=== PATIENT | female | born 1960 | race Asian ===

== ENCOUNTER 2022-07-21 07:45 | Emergency (ER) | payer MEDICAID ==
[~2022-07-21] VITALS: Ht 162.6 cm; Wt 69.4 kg
[2022-07-21 07:50] VITALS: BP 133/81
[2022-07-21] MEDS ORDERED: LOSA50TA66 PO (08:02)
[2022-07-21] MEDS ORDERED: BACL10TA4 PO (08:03)
[2022-07-21] MEDS ORDERED: ESOM20EC PO (08:04)
[2022-07-21] MEDS ORDERED: ATOR40TA PO (08:04)
--- NOTE | 2022-07-21 08:05 | NUR ---
no open beds at this time, pt back to [facility]
[2022-07-21 09:15] LABS: BASOPHILS # (AUTO) 0.2 K/uL (0.00-0.22); BASOPHILS % (AUTO) 2.3 % (0.0-2.0); EOSINOPHILS # (AUTO) 0.2 K/uL (0-0.4); EOSINOPHILS % (AUTO) 2.3 % (0.0-4.0); HEMATOCRIT 40.9 % (36-48); HEMOGLOBIN 13.9 g/dL (12.0-16.0); LYMPHOCYTES # (AUTO) 2.3 K/uL (2.5-16.5); LYMPHOCYTES % (AUTO) 33.3 % (20.5-51.1); MEAN CORPUSCULAR HEMOGLOBIN 32 pg (27-31); MEAN CORPUSCULAR HGB CONC 34 g/dL (33-37); MONOCYTES # (AUTO) 0.3 K/uL (0.8-1.0); MONOCYTES % (AUTO) 4.6 % (1.7-9.3); NEUTROPHILS # (AUTO) 3.9 K/uL (1.8-7.7); NEUTROPHILS % (AUTO) 57.5 % (42.2-75.2); PLATELET COUNT (AUTO) 308 K/uL (140-450); RED BLOOD CELL COUNT(AUTO) 4.35 MIL/uL (4.20-5.40); RED CELL DISTRIBUTION WIDTH 13.2 % (11.6-13.7); WHITE BLOOD COUNT (AUTO) 6.8 K/uL (4.8-10.8)
[2022-07-21 09:22] LABS: ALBUMIN 4.4 g/dL (3.4-5.0); ANION GAP 12.3 (8-16); ASPARTATE AMINOTRANSFERASE 27 U/L (15-37); CARBON DIOXIDE 27.4 mmol/L (21-32); CHLORIDE 105 mmol/L (98-107); CREATININE 0.8 mg/dL (0.6-1.3); GFR ARICAN-AMERICAN 94 mL/min (>90); GLUCOSE 103 mg/dL (74-106); POTASSIUM 3.7 mmol/L (3.5-5.1); SODIUM SERUM 141 mmol/L (136-145); TOTAL BILIRUBIN 0.9 mg/dL (0.0-1.0); UREA NITROGEN, BLOOD 23 mg/dL (7-18)
[2022-07-21 10:08] LABS: APPEARANCE,URINE CLEAR (CLEAR); BILIRUBIN,URINE NEGATIVE (NEGATIVE); BLOOD, URINE NEGATIVE (NEGATIVE); COLOR,URINE YELLOW (YELLOW); LEUKOCYTE ESTERASE ,URINE TRACE (NEGATIVE); NITRITE, URINE NEGATIVE (NEGATIVE); UGLUCOSE NEGATIVE (NEGATIVE)
[2022-07-21 10:32] LABS: RBC,URINE NONE SEEN /HPF (0-5); WBC,URINE 0-5 /HPF (0-5)
[2022-07-21 10:33] LABS: TRICHOMONAS,URINE None Seen /HPF (None Seen); YEAST,URINE None Seen /HPF (None Seen)
--- NOTE | 2022-07-21 11:48 | NUR ---
REPORT GIVEN TO NURSE ANDRADE AT [facility] ED FOR CONTINUITY OF CARE.
--- NOTE | 2022-07-21 12:00 | NUR ---
[facility] BEDSIDE FOR PATIENT TRANSFER TO [facility]
[2022-07-21 12:12] VITALS: BP 148/70
== END 2022-07-21 12:00 | disposition short-term general hospital (02) ==
LOC: MED 07:45
DX: I21.4 Non-ST elevation (NSTEMI) myocardial infarction (principal); R27.0 Ataxia, unspecified; G91.9 Hydrocephalus, unspecified; R53.1 Weakness; I10 Essential (primary) hypertension; E78.5 Hyperlipidemia, unspecified; Z79.899 Other long term (current) drug therapy
CPT/HCPCS: 36415; 70450; 70496; 70498; 71045; 80053; 81001; 84484; 85025; 86886; 86900; 86901; 99291; Q9967

== ENCOUNTER 2023-07-24 17:07 | Emergency (ER) | payer MEDICAID, OTHER ==
[~2023-07-24] VITALS: Ht 160 cm; Wt 65.8 kg
[~2023-07-24 17:07] MED LIST: ATOR40TA PO; BACL10TA4 PO; ESOM20EC PO; LOSA50TA66 PO
[2023-07-24 17:30] VITALS: BP 122/82; PULSE 82; RESP 16; TEMP 97.7; O2SAT 97
[2023-07-24] MEDS ORDERED: MORPHINE SULFATE 2 MG/ML SYR IVP ONE (18:00)
[2023-07-24] MEDS ORDERED: ONDANSETRON 4 MG/2 ML VIAL IVP ONE (18:00)
[2023-07-24] MEDS ORDERED: ACETAMINOPHEN 325 MG TAB PO ONE (18:45)
[2023-07-24] MEDS ORDERED: ONDANSETRON 4 MG ODT PO ONE (18:45)
[2023-07-24 18:53] LABS: BASOPHILS # (AUTO) 0.1 K/uL (0.00-0.22); BASOPHILS % (AUTO) 1.5 % (0.0-2.0); EOSINOPHILS # (AUTO) 0.2 K/uL (0-0.4); EOSINOPHILS % (AUTO) 1.8 % (0.0-4.0); HEMATOCRIT 41.8 % (36-48); HEMOGLOBIN 14.1 g/dL (12.0-16.0); LYMPHOCYTES # (AUTO) 1.6 K/uL (2.5-16.5); LYMPHOCYTES % (AUTO) 19.5 % (20.5-51.1); MEAN CORPUSCULAR HEMOGLOBIN 32 pg (27-31); MEAN CORPUSCULAR HGB CONC 34 g/dL (33-37); MONOCYTES # (AUTO) 0.6 K/uL (0.8-1.0); MONOCYTES % (AUTO) 7.5 % (1.7-9.3); NEUTROPHILS # (AUTO) 5.8 K/uL (1.8-7.7); NEUTROPHILS % (AUTO) 69.7 % (42.2-75.2); PLATELET COUNT (AUTO) 365 K/uL (140-450); RED BLOOD CELL COUNT(AUTO) 4.41 MIL/uL (4.20-5.40); RED CELL DISTRIBUTION WIDTH 13.6 % (11.6-13.7); WHITE BLOOD COUNT (AUTO) 8.3 K/uL (4.8-10.8)
[2023-07-24 19:08] LABS: CARBON DIOXIDE 27.1 mmol/L (21-32); CREATININE 0.6 mg/dL (0.6-1.3); POTASSIUM 4.1 mmol/L (3.5-5.1)
[2023-07-24 19:18] LABS: ALANINE AMINOTRANSFERASE 29 U/L (12-78); ALBUMIN 3.6 g/dL (3.4-5.0); ALKALINE PHOSPHATASE 98 U/L (50-136); ASPARTATE AMINOTRANSFERASE 30 U/L (15-37); BILIRUBIN,DIRECT 0.1 mg/dL (0.0-0.3); LIPASE 35 U/L (16-77); TOTAL BILIRUBIN 0.4 mg/dL (0.0-1.0); TOTAL PROTEIN, SERUM 8.1 g/dL (6.4-8.2)
[2023-07-24 20:56] LABS: APPEARANCE,URINE CLEAR (CLEAR); BILIRUBIN,URINE NEGATIVE (NEGATIVE); BLOOD, URINE NEGATIVE (NEGATIVE); COLOR,URINE YELLOW (YELLOW); LEUKOCYTE ESTERASE ,URINE TRACE (NEGATIVE); NITRITE, URINE NEGATIVE (NEGATIVE); PROTEIN,URINE NEGATIVE (NEGATIVE); UGLUCOSE NEGATIVE (NEGATIVE); UROBILINOGEN,URINE 0.2 EU/dL (0.2 - 1)
[2023-07-24 21:06] LABS: RBC,URINE 0 /HPF (0-5); WBC,URINE 0-5 /HPF (0-5)
[2023-07-24 21:11] LABS: BACTERIA,URINE 0-2 /HPF (None Seen); MUCUS,URINE None Seen /LPF (None Seen); SQUAMOUS EPITHELIAL CELL,UR 0-3 (FEW) /LPF (0-3 (FEW))
[2023-07-24 22:15] VITALS: BP 132/76; PULSE 90; RESP 16; TEMP 97.7; O2SAT 98
== END 2023-07-24 22:15 | disposition left against medical advice (07) ==
LOC: MED 17:07
DX: I67.1 Cerebral aneurysm, nonruptured (principal); K80.20 Calculus of gallbladder without cholecystitis without obstruction; I10 Essential (primary) hypertension; Z79.899 Other long term (current) drug therapy
CPT/HCPCS: 36415; 70450; 70496; 70498; 74176; 80048; 80076; 81001; 83690; 84484; 85025; 93005; 99285; Q0162; Q9967